=== PATIENT | female | born 1955 | race Caucasian/White ===

== ENCOUNTER → 2018-09-22 | Day surgery (SDC) | payer MEDICAID ==
[2018-09-17 15:43] VITALS: BMI 22.6
[~2018-09-22] MED LIST: BUPIVACAINE (PF) 0.5% 30 ML VIAL SQ ONE; DEXAMETHASONE SOD PHOSPHATE 10 MG/ML 1 ML VIAL IV ONE; DEXAMETHASONE SOD PHOSPHATE 4 MG/ML 1 ML VIAL ONE; HYDROmorphone 0.5 MG/0.5 ML SYRINGE IVP PRN; LACTATED RINGERS 1,000 ML IV SCH; LIDOCAINE 1% 20 ML VIAL (10MG/ML) FOR IV START INTRADERMA ONE; LIDOCAINE 2% INJ 20 MG/ML SQ ONE; MIDAZOLAM (PF) 2 MG/2 ML VIAL IV PRN; MIDAZOLAM (PF) 2 MG/2 ML VIAL IVP ONE; MIDAZOLAM 2 MG/2 ML VIAL ONE; ONDANSETRON 4 MG/2 ML VIAL IVP ONE; PROPOFOL 10 MG/ML 20 ML VIAL IV ONE; Pre Op ABX Message 1 EACH MISC MISCELLANE ONE; ROPIVACAINE 5 MG/ML 30 ML VIAL ONE; SCOPOLAMINE 1.5MG/72HR PATCH TRANSDERM ONE; fentaNYL (PF) 50 MCG/ML 2 ML AMP ONE
[2018-09-22 07:55] VITALS: TEMP 98
[2018-09-22 09:47] VITALS: BP 131/82; PULSE 77; RESP 16
--- NOTE | 2018-09-22 10:23 | P.ONQ ---
Anesthesiology Proc Note - PNB - Peripheral Nerve Block Performed Right Infraclavicular Single Time Out Performed: Yes Procedure Start Time: 08:11 Procedure Stop Time: 08:17 Indication: Acute Post-Operative Pain, Requested by physician Sedation Type: Sedate with meaningful contact maintained Preparation: Sterile Prep Position: Supine Needle Size: 50mm (2") Needle Gauge: 21 Technique: Ultrasound Injectate: 0.5% Ropivacaine (see comment for volume) (Ropivacaine 0.5%-30 mL plus dexamethasone 4 mg) Blood Aspirated: No Pain Paresthesia on Injection Noted: No Resistance on Injection: Normal Events: Uneventful and Well Tolerated
--- NOTE | 2018-09-22 12:13 | OP ---
OPERATIVE REPORT SURGERY DATE: 09/22/2018 SURGEON: Flash Collins DO PREOPERATIVE DIAGNOSES: 1. Radioscaphoid arthritis right wrist. 2. Right carpal tunnel syndrome. FINAL DIAGNOSES: 1. Radioscaphoid arthritis right wrist. 2. Right carpal tunnel syndrome. PROCEDURES: 1. Proximal row carpectomy, right wrist. 2. Right carpal tunnel release. 3. Denervation right wrist. PROCEDURE: This is 63-year-old woman was taken operative suite after an axillary block was given by the department of anesthesia in the preop holding area. This was supplemented with local anesthetic using combinations Xylocaine and Marcaine both without epinephrine. Approximately 10 mL were used. The hand was then prepped and draped in usual manner. It was elevated exsanguinated and cuff was inflated to 250 mmHg. A standard open carpal tunnel release using a mini incision technique was used. A 1 to 2 cm incision was made in the proximal mid palm. Skin was incised and dissection was taken through subcutaneous tissue. The palmar fascia and transverse carpal ligaments were incised under direct vision. A limited view of the carpal tunnel and its contents was unremarkable. This wound was irrigated and attention was turned to the dorsal aspect of the wrist. A transverse incision was made distal to Dustin's tubercle. Dissection was taken through the skin, and care was taken to avoid injuring sensory nerves and large longitudinal vessels. Exposure between the 2nd and 3rd compartment on the radial side and the finger extensors on the ulnar side was performed. The extensor retinaculum was generally left intact as the exposure was distal to the structure. There was enough exposure performed at this point in the 4th compartment to identify the terminal branch of the posterior osseous nerve which was sensory to the wrist. A small portion was excised. This neurectomy helps with diminished sensory pain in the wrist joint. A T-shaped incision was made in the wrist joint and the proximal row was exposed using sharp and blunt dissection. This was aided with a [place] elevator. The proximal carpal row consisting of the scaphoid lunate and triquetrum were osteotomized and removed in piecemeal fashion with a rongeur. Care was taken to avoid injuring the head of the capitate. There were some minor areas of arthritic changes on this joint surface, but generally it was satisfactory to allow this procedure. After the 3 bones were completely removed and thorough inspection revealed no more fragments. The wound was thoroughly irrigated. The head of the capitate then was allowed to sit in the lunate fossa and it was relatively stable. No further stabilization was necessary. The tourniquet was released. Further irrigation was undertaken and hemostasis was acquired with pressure. Both incisions were closed with 5-0 nylon suture. A soft bulky dressing was then applied followed by plaster splinting on the volar aspect with the wrist in a neutral position and the fingers free. The patient was then taken to recovery room in satisfactory condition. MMODL / IJN: [id number] /
== END ==
LOC: OR 07:32
PROVIDERS: ATTEND Orthopaedic Surgery Hand Surgery
DX: M19.031 Primary osteoarthritis, right wrist (principal); G56.01 Carpal tunnel syndrome, right upper limb; E03.9 Hypothyroidism, unspecified; I25.10 Atherosclerotic heart disease of native coronary artery without angina pectoris; Z95.5 Presence of coronary angioplasty implant and graft; Z87.891 Personal history of nicotine dependence; Z85.71 Personal history of Hodgkin lymphoma; Z94.84 Stem cells transplant status; Z79.02 Long term (current) use of antithrombotics/antiplatelets; Z79.890 Hormone replacement therapy; Z79.899 Other long term (current) drug therapy
CPT/HCPCS: 25215; 64721; 64415; J2001; J2250 ×2; J1100 ×2; J2405; J3010; J2795; J2704; 64417